=== PATIENT | male | born 1960 | race Caucasian/White ===

== ENCOUNTER 2016-10-06 01:14 | Emergency (ER) | payer OTHER ==
[~2016-10-06] VITALS: Ht 177.8 cm; Wt 65.8 kg
[2016-10-06] MEDS ORDERED: Ketorolac 30mg Inj IV ONE (01:45)
[2016-10-06] MEDS ORDERED: Morphine Sulfate 4mg/ml Inj IVP ONE ×2 (01:45→04:30)
[2016-10-06] MEDS: Tamsulosin 0.4mg cap ORAL SCH ×2 (02:03→04:37)
[2016-10-06 03:20] LABS: BASOPHILS % (AUTO) 1.1 % (0.0-2.0); EOSINOPHILS % (AUTO) 3.8 % (0.0-3.0); LYMPHOCYTES % (AUTO) 38.9 % (20.0-45.0); MEAN CORPUSCULAR HEMOGLOBIN 31.9 PG (27.0-31.0); MEAN CORPUSCULAR HGB CONC 34.9 G/DL (32.0-36.0); MEAN CORPUSCULAR VOLUME 92 FL (80-99); MEAN PLATELET VOLUME 8.9 FL (6.5-10.1); MONOCYTES % (AUTO) 5.9 % (1.0-10.0); NEUTROPHILS % (AUTO) 50.2 % (45.0-75.0); PLATELET COUNT 198 K/UL (150-450); RED BLOOD COUNT 5.09 M/UL (4.70-6.10); RED CELL DISTRIBUTION WIDTH 10.8 % (11.6-14.8); WHITE BLOOD COUNT 6.9 K/UL (4.8-10.8)
[2016-10-06 03:20] LABS: APPEARANCE,URINE CLEAR; KETONES,URINE 1+ (NEGATIVE); LEUKOCYTE ESTERASE ,URINE NEGATIVE (NEGATIVE); NITRITE,URINE NEGATIVE (NEGATIVE); PH,URINE 6 (4.5-8.0); PROTEIN,URINE NEGATIVE (NEGATIVE); UROBILINOGEN,URINE NORMAL MG/DL (0.0-1.0)
[2016-10-06 03:30] VITALS: BP 128/97
[2016-10-06 03:36] LABS: ALANINE AMINOTRANSFERASE 23 U/L (3-41); ALBUMIN/GLOBULIN RATIO 1.7 (1.0-2.7); ANION GAP 16 (5-15); ASPARTATE AMINO TRANSFERASE 34 U/L (5-40); CALCIUM 9.1 mg/dL (8.6-10.2); CARBON DIOXIDE 27 mEQ/L (20-30); CHLORIDE 97 mEQ/L (98-107); CREATININE 1.2 mg/dL (0.7-1.2); GLOMERULAR FILTRATION RATE > 60 mL/min (>60); HEMOLYSIS 16; LIPASE 32 U/L (< 60); POTASSIUM 3.7 mEQ/L (3.4-4.9); SODIUM 140 mEQ/L (135-145); TOTAL PROTEIN 6.9 g/dL (6.6-8.7)
[2016-10-06 03:38] LABS: RBC,URINE 0-2 /HPF (0 - 0); WBC,URINE 0 /HPF (0 - 0)
--- NOTE | 2016-10-06 04:52 | Emergency Room Report ---
History of Present Illness General Chief Complaint: Abdominal Pain Source: Patient Present Illness HPI 56 YOM with acute left sided intermittent spasm pain left abdomen, 8/10, radiating to left groin. Denies fever/chills, flank pain, urinary complaints, hematuria. History of right renal stones. No other medical problems. Denies nausea/vomiting. Allergies: Coded Allergies: No Known Allergies (Unverified , 10/06/16) Patient History Past Medical History: other - renal stones Past Surgical History: none Pertinent Family History: none Social History: Reports: alcohol use, Denies: drug use, smoking Immunizations: UTD Reviewed Nursing Documentation: PMH: Agreed, PSxH: Agreed Nursing Documentation-PMH Hx Gastrointestinal Problems: Yes - HISTORY OF KIDNEY STONE Review of Systems All Other Systems: negative except mentioned in HPI Physical Exam Vital Signs Date Time Temp Pulse Resp B/P Pulse Ox O2 Delivery O2 Flow Rate FiO2 10/06/16 01:18 97.9 62 18 132/91 100 Room Air Sp02 EP Interpretation: reviewed, normal General Appearance: normal inspection, well appearing, no apparent distress, alert, GCS 15, non-toxic Head: normocephalic, atraumatic Eyes: bilateral eye EOMI, bilateral eye PERRL ENT: normal ENT inspection, hearing grossly normal, normal voice Neck: normal inspection, full range of motion, supple, no bony tend Respiratory: normal inspection, lungs clear, normal breath sounds, no respiratory distress, no retraction, no wheezing Cardiovascular #1: regular rate, rhythm, no edema Gastrointestinal: normal inspection, normal bowel sounds, non tender, soft, no guarding, no hernia Genitourinary: no CVA tenderness, scrotum normal Musculoskeletal: normal inspection, back normal, normal range of motion, [place]ell' s Sign negative Neurologic: normal inspection, alert, oriented x3, responsive, 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 H&H stable UA: Blood, no UTI CT: "Mild left hydroureteronephrosis to the level of a 3 mm calculus at the distalmost aspect of the left ureterovesical junction." Patient felt better after 2x doses of morphine, toradol and IVF Tolerating PO Will DC with Rx Flomax, percocet as needed for pain Should likely pass stone as is <5mm Understands need to return to ED if no improvement with PO meds Otherwise followup with PMD for Urology referral Last Vital Signs Date Time Temp Pulse Resp B/P Pulse Ox O2 Delivery O2 Flow Rate FiO2 10/06/16 03:30 60 12 128/97 100 Room Air 10/06/16 03:29 97.8 Status: improved Disposition: HOME, SELF-CARE Scripts Oxycodone/Acetaminophen 5-325* (PERCOCET 5-325 MG TABLET*) 1 Each Tablet 1 TAB ORAL Q6H Y for For Pain, #20 TAB Prov: CHERELLE CLARK M.D. 10/06/16 Tamsulosin Hcl (TAMSULOSIN HCL*) 0.4 Mg Cap.er.24h 0.4 MG ORAL morning for 7 Days, #7 CAP Prov: CHERELLE CLARK M.D. 10/06/16 Referrals: NOT CHOSEN [facility]/,REFERRING (PCP) CHERELLE CLARK M.D. Oct 06, 2016 04:52
[2016-10-06] MEDS ORDERED: Famotidine 20 MG/ 2ML VIAL IVP ONE (05:30)
[2016-10-06] MEDS ORDERED: TAMSULOSIN HCL0.4 MG ORAL (05:32)
[2016-10-06] MEDS ORDERED: PERCOCET 5-3251 EACH ORAL (05:32)
[2016-10-06 05:45] VITALS: BP 119/91
[2016-10-06 06:11] VITALS: BP 119/91
--- NOTE | 2016-10-06 08:22 | Diagnostic Imaging Report ---
Indication: Left flank pain Technique: Continuous helical scanning was performed without any contrast material from the diaphragms through the pelvis . Axial, sagittal, and coronal images were generated. Dose: Total Dose Length Product - DLP [address] Dose Index - CTDIvol(s) 13.1 mGy. Comparison: None Findings: The liver is normal. The gallbladder is unremarkable. The spleen is normal. The pancreas is unremarkable. Adrenal glands are normal. There are bilateral small nonobstructive renal calculi. Mild left hydronephrosis and hydroureter is present. The aorta and inferior vena cava are normal caliber. Retroperitoneum is free of adenopathy. The appendix is normal. There is a 4 mm calculus in the left ureterovesical junction. The bladder is otherwise unremarkable. Calcifications are noted in the prostate. Seminal vesicles are unremarkable. There is osteopenia. Cystic changes are noted in the femoral heads bilaterally, likely degenerative. There is a small umbilical hernia containing only fat. Impression: 4 mm calculus in the distal left ureterovesical junction. Mild left hydronephrosis and hydroureter. Bilateral nonobstructive renal calculi. Osteopenia. Small umbilical hernia containing fat. Cystic changes in the femoral heads bilaterally, likely degenerative. The above report is concordant with preliminary reading by [facility] . The CT scanner at [facility] is accredited by the [employer] and the scans are performed using protocols designed to limit radiation exposure to as low as reasonably achievable to attain images of sufficient resolution adequate for diagnostic evaluation.
== END 2016-10-06 06:12 | disposition home or self-care (01) ==
LOC: EMR 01:35
DX: N13.2 Hydronephrosis with renal and ureteral calculous obstruction (principal); K42.9 Umbilical hernia without obstruction or gangrene; M85.80 Other specified disorders of bone density and structure, unspecified site; Z87.442 Personal history of urinary calculi
CPT/HCPCS: 36415; 74176; 80053; 81003; 83690; 85025; 96360; 96374; 96375; 99284; J1885; J2270; S0028